=== PATIENT | female | born 1995 ===

== ENCOUNTER 2018-02-24 07:27 | Day surgery (SDC) | payer BC ==
[2018-02-18 13:14] VITALS: BMI 25.2
[2018-02-24] MEDS ORDERED: Propofol 10 mg/ml Inj (20 ML) ONE (09:22)
[2018-02-24] MEDS ORDERED: Sodium Chloride 0.9% 1,000 ML IV SCH (09:45)
[2018-02-24 09:50] VITALS: O2SAT 99
[2018-02-24 10:38] VITALS: BP 128/84; PULSE 100; RESP 16; TEMP 98.2
== END 2018-02-24 10:52 | disposition home or self-care (01) ==
LOC: ENDO 07:27
PROVIDERS: ATTEND Specialist
DX: K51.90 Ulcerative colitis, unspecified, without complications (principal)
CPT/HCPCS: 45380; 84703; 87324; 88305; J2001; J2704; J7030; J7040